=== PATIENT | female | born 1960 | race Caucasian/White ===

== ENCOUNTER 2018-01-24 11:00 | Emergency (ER) | payer BC ==
--- NOTE | 2018-01-24 12:04 | EDPHY ---
H & P Stated Complaint: Loss of bowel control Time Seen by Provider: 01/24/18 12:03 HPI/ROS: CHIEF COMPLAINT: Loss of bowel control HISTORY OF PRESENT ILLNESS: The patient presents to the ED with 3 days of loss of bowel control. She reports she is having some soft stools. She denies fever or diarrhea. She denies any vomiting or significant abdominal pain. She denies any recent medication changes. She denies any history of low back pain or lower extremity numbness or weakness. The patient did see her primary care provider who recommended that she follow up with a mortising machine operator for further evaluation for symptoms. Patient has no additional acute complaints in the ED. REVIEW OF SYSTEMS: A comprehensive 10 point review of systems is otherwise negative aside from elements mentioned in the history of present illness. Source: Patient Exam Limitations: No limitations - Personal History Current Tetanus/Diphtheria Vaccine: Yes - Medical/Surgical History Hx Asthma: No Hx Chronic Respiratory Disease: No Hx Diabetes: No Hx Cardiac Disease: No Hx Renal Disease: No Hx Cirrhosis: No Hx Alcoholism: No Other PMH: epillepsy - Social History Smoking Status: Never smoked - Physical Exam Exam: General Appearance: Alert, no distress Eyes: Pupils equal and round no pallor or injection ENT, Mouth: Mucous membranes moist Respiratory: There are no retractions, lungs are clear to auscultation Cardiovascular: Regular rate and rhythm Gastrointestinal: Abdomen is soft and nontender, no masses, bowel sounds normal Neurological: A&O, normal motor function, normal sensory exam, normal cranial nerves Skin: Warm and dry, no rashes Musculoskeletal: Neck is supple nontender Extremities: symmetrical, full range of motion Constitutional: Initial Vital Signs Temperature (C) 36.7 C 01/24/18 11:04 Heart Rate 62 01/24/18 11:04 Respiratory Rate 18 01/24/18 11:04 Blood Pressure 116/59 L 01/24/18 11:04 O2 Sat (%) 96 01/24/18 11:04 O2 Delivery Mode Room Air Allergies/Adverse Reactions: No Allergies [NKA] Allergy (Verified 01/24/18 11:08) Home Medications: Medication Instructions Recorded Topiramate [Topamax 100MG (RX)] 150 mg 02/22/12 lamoTRIgine [LAMICTAL ODT (ORANGE)] 1 each PO 02/22/12 oxyCODONE/APAP 5/325 [Percocet 5 mg PO Q4-6PRN PRN #20 tab NS 02/22/12325] Medical Decision Making ED Course/Re-evaluation: The patient is well-appearing and neurologically intact. She presents to the ED with loss of bowel control in the setting of some soft stools. I believe this this could be secondary to irritable bowel syndrome or possibly a mild infectious gastroenteritis. She is neurologically intact and has nothing to suggest a cauda equina type syndrome. Patient will be advised to use Imodium. She is advised to return to the ED for the development of any back pain, numbness or acute neurologic complaints. The patient did report that she had noticed some black stool. The patient's CBC is within normal limits. The patient's Hemoccult is negative. The patient does plan to follow up with Gastroenterology for any ongoing symptoms. She is discharged home with customary aftercare instructions and return precautions. Differential Diagnosis: Differential diagnosis considered includes upper GI bleed, lower GI bleed, infectious gastroenteritis, dehydration, metabolic derangement - Data Points Laboratory Results: Laboratory Results 01/24/18 12:25 01/24/18 12:25 01/24/18 01/24/18 01/24/18 13:15 12:25 12:25 WBC RBC Hgb Hct MCV MCH MCHC RDW Plt Count MPV Neut % (Auto) Lymph % (Auto) [place] % (Auto) Eos % (Auto) Baso % (Auto) Nucleat RBC Rel Count Absolute Neuts (auto) Absolute Lymphs (auto) Absolute Monos (auto) Absolute Eos (auto) Absolute Basos (auto) Absolute Nucleated RBC Immature Gran % Immature Gran # Sodium 143 mEq/L mEq/L (135-145) Potassium 4.0 mEq/L mEq/L (3.3-5.0) Chloride 108 mEq/L mEq/L (97-110) Carbon Dioxide 26 mEq/l mEq/l (22-31) Anion Gap 9 mEq/L mEq/L (8-16) BUN 21 mg/dL mg/dL (7-23) Creatinine 0.9 mg/dL mg/dL (0.6-1.0) Estimated GFR > 60 Glucose 88 mg/dL mg/dL (70-100) Calcium 9.6 mg/dL mg/dL (8.5-10.4) Urine Color PALE YELLOW Urine Appearance CLEAR Urine pH 7.0 (5.0-7.5) Ur Specific [place] 1.011 (1.002-1.030) Urine Protein NEGATIVE (NEGATIVE) Urine Ketones NEGATIVE (NEGATIVE) Urine Blood NEGATIVE (NEGATIVE) Urine Nitrate NEGATIVE (NEGATIVE) Urine Bilirubin NEGATIVE (NEGATIVE) Urine Urobilinogen NEGATIVE EU EU (0.2-1.0) Ur Leukocyte Esterase NEGATIVE (NEGATIVE) Urine Glucose NEGATIVE (NEGATIVE) Stool Occult Bld Scrn NEGATIVE (NEGATIVE) 01/24/18 12:25 WBC 5.69 10^3/uL 10^3/uL (3.80-9.50) RBC 4.45 10^6/uL 10^6/uL (4.18-5.33) Hgb 13.4 g/dL g/dL (12.6-16.3) Hct 41.9 % % (38.0-47.0) MCV 94.2 fL fL (81.5-99.8) MCH 30.1 pg pg (27.9-34.1) MCHC 32.0 g/dL L g/dL (32.4-36.7) RDW 13.7 % % (11.5-15.2) Plt Count 261 10^3/uL 10^3/uL (150-400) MPV 8.8 fL fL (8.7-11.7) Neut % (Auto) 51.7 % % (39.3-74.2) Lymph % (Auto) 33.2 % % (15.0-45.0) [place]arnett % (Auto) 10.2 % % (4.5-13.0) Eos % (Auto) 2.8 % % (0.6-7.6) Baso % (Auto) 1.6 % % (0.3-1.7) Nucleat RBC Rel Count 0.0 % % (0.0-0.2) Absolute Neuts (auto) 2.94 10^3/uL 10^3/uL (1.70-6.50) Absolute Lymphs (auto) 1.89 10^3/uL 10^3/uL (1.00-3.00) Absolute Monos (auto) 0.58 10^3/uL 10^3/uL (0.30-0.80) Absolute Eos (auto) 0.16 10^3/uL 10^3/uL (0.03-0.40) Absolute Basos (auto) 0.09 10^3/uL 10^3/uL (0.02-0.10) Absolute Nucleated RBC 0.00 10^3/uL 10^3/uL (0-0.01) Immature Gran % 0.5 % % (0.0-1.1) Immature Gran # 0.03 10^3/uL 10^3/uL (0.00-0.10) Sodium Potassium Chloride Carbon Dioxide Anion Gap BUN Creatinine Estimated GFR Glucose Calcium Urine Color Urine Appearance Urine pH Ur Specific [place] Urine Protein Urine Ketones Urine Blood Urine Nitrate Urine Bilirubin Urine Urobilinogen Ur Leukocyte Esterase Urine Glucose Stool Occult Bld Scrn Departure - Departure Disposition: Home, Routine, Self-Care Clinical Impression: Bowel incontinence Condition: Good Additional Instructions: 1. I do recommend trying Imodium for the next several days to see if that improves your symptoms. 2. Return to the ED for the development of any severe back pain, numbness or weakness in her legs or other concerns. 3. I recommend following up with a mortising machine operator you have been referred to for further evaluation of any ongoing symptoms. Referrals: SAMANTHA WEEKS [Primary Care Provider] - As per Instructions
[2018-01-24 12:42] LABS: PLATELET COUNT 261 10^3/uL (150-400)
[2018-01-24 13:48] VITALS: BP 106/51
== END 2018-01-24 14:43 | disposition home or self-care (01) ==
DX: R15.9 Full incontinence of feces (principal)